=== PATIENT | female | born 1990 ===

== ENCOUNTER 2017-07-02 10:18 | Emergency (ER) | payer OTHER ==
[2017-07-02 10:28] VITALS: BMI 20.2
[2017-07-02 10:34] VITALS: RESP 18; O2SAT 100
[2017-07-02] MEDS ORDERED: Sodium Chloride 0.9% 1,000 ML IV ONE (10:43)
[2017-07-02] MEDS ORDERED: Sodium Chloride 0.9% 1,000 ML ONE (10:52)
[2017-07-02 11:13] LABS: BASO % 0.1 % (0.0-2.0); EOS # 0.1 K/uL (0.0-0.7); EOS % 1.1 % (0.0-4.0); HEMATOCRIT 40.9 % (34.0-47.0); LYMPH # 1.6 K/uL (1.0-4.3); LYMPH % 27.1 % (20.0-40.0); MEAN CELL VOLUME 88.3 fL (81.0-99.0); MEAN CORPUSCULAR HGB CONC 33.9 g/dL (33.0-37.0); MONO # 0.4 K/uL (0.0-0.8); MONO % 7.5 % (0.0-10.0); RED CELL DISTRIBUTION WIDTH 12.6 % (11.5-14.5); WHITE BLOOD COUNT 5.8 K/uL (4.8-10.8)
[2017-07-02 11:21] LABS: CHLORIDE 101 mmol/L (98-107); SODIUM 140 mmol/L (132-148)
[2017-07-02 11:22] LABS: RBC URINE 2 /hpf (0-3); URINE BILIRUBIN NEGATIVE (NEGATIVE); URINE BLOOD 1+ (NEGATIVE); URINE COLOR Yellow (YELLOW); URINE GLUCOSE (UA) NORMAL (Normal); URINE KETONE NEGATIVE (NEGATIVE); URINE LEUKOCYTE ESTERASE NEG Leu/uL (Negative); URINE PROTEIN NEGATIVE (NEGATIVE); URINE UROBILINOGEN NORMAL mg/dL (0.2-1.0); WBC URINE < 1 /hpf (0-5)
[2017-07-02 11:23] LABS: BILIRUBIN,TOTAL 0.7 mg/dL (0.2-1.3); GFR AFRICAN-AMERICAN > 60
[2017-07-02 11:24] LABS: ALB/GLOB RATIO 1.3 (1.0-2.1); ALKALINE PHOSPHATASE 47 U/L (38-126); ALT/SGPT 30 U/L (9-52); AST/SGOT 22 U/L (14-36); BLOOD UREA NITROGEN 12 mg/dL (7-17); CALCIUM 8.8 mg/dl (8.6-10.4); CARBON DIOXIDE 26 mmol/L (22-30); GLUCOSE,RANDOM 84 mg/dL (65-105)
--- NOTE | 2017-07-02 11:26 | CT ---
PROCEDURE: CT HEAD WITHOUT CONTRAST. HISTORY: Headache for 20 days, dizziness for 3 days COMPARISON: None available. TECHNIQUE: Axial computed tomography images were obtained through the head/brain without intravenous contrast. Radiation dose: Total exam DLP = 981.84 mGy-cm. This CT exam was performed using one or more of the following dose reduction techniques: Automated exposure control, adjustment of the mA and/or kV according to patient size, and/or use of iterative reconstruction technique. FINDINGS: HEMORRHAGE: No intracranial hemorrhage. BRAIN: No mass effect or edema. No atrophy or chronic microvascular ischemic changes. VENTRICLES: No hydrocephalus. CALVARIUM: Unremarkable. PARANASAL SINUSES: Unremarkable as visualized. No significant inflammatory changes. MASTOID AIR CELLS: Unremarkable as visualized. No inflammatory changes. OTHER FINDINGS: None. IMPRESSION: No acute intracranial pathology identified.
--- NOTE | 2017-07-02 11:45 | C.PDOC ---
History Of Present Illness Patient is a 26 year old female, with no significant past medical history, presents to Emergency Department for evaluation of intermittent headache for the last 20 days. Patient described headache as pressure, tight, and as "squeezing". Notes taking Ibuprofen for headache with transient relief. Also states that she developed dizziness associated with nausea and 1 episode of vomiting 4 days ago. Dizziness was described as room-spinning sensation. (+) photophobia (+)phonophobia. Otherwise, denies any abdominal pain, diarrhea, dysuria, hematuria, fever, chills, sensory changes, or any other associated symptoms at this time. Time Seen by Provider: 07/02/17 10:33 Chief Complaint (Nursing): Headache History Per: Patient History/Exam Limitations: no limitations Onset/Duration Of Symptoms: Days (20) Current Symptoms Are (Timing): Still Present Quality: Tightness, Pressure, Squeezing Preceeding Symptoms: Visual Disturbances. denies: Known Migraine Symptoms Associated Symptoms: Photophobia, Nausea, Vomiting. denies: Blurred Vision, Extremity Weakness Recent travel outside of the [place]: No Additional History Per: Patient Past Medical History Reviewed: Historical Data, Nursing Documentation, Vital Signs Vital Signs: Last Vital Signs Temp 98.0 F 07/02/17 12:40 Pulse 55 L 07/02/17 12:40 Resp 18 07/02/17 12:40 BP 92/58 L 07/02/17 12:40 Pulse Ox 100 07/02/17 12:40 - Medical History PMH: No Chronic Diseases Surgical History: Appendectomy, Cholecystectomy Family History: States: No Known Family Hx - Social History Hx Alcohol Use: No Hx Substance Use: No - Immunization History Hx Tetanus Toxoid Vaccination: No Hx Influenza Vaccination: No Hx Pneumococcal Vaccination: No Review Of Systems Except As Marked, All Systems Reviewed And Found Negative. Constitutional: Negative for: Fever, Chills Gastrointestinal: Positive for: Nausea, Vomiting. Negative for: Abdominal Pain , Diarrhea, Constipation, Hematemesis Genitourinary: Negative for: Dysuria, Frequency, Hematuria Musculoskeletal: Negative for: Neck Pain, Back Pain Neurological: Positive for: Headache, Dizziness. Negative for: Weakness, Numbness Physical Exam - Physical Exam Appears: Non-toxic, No Acute Distress Skin: Warm, Dry, No Rash Head: Atraumatic, Normacephalic Eye(s): bilateral: Normal Inspection, PERRL, EOMI, Other (no nystagmus) Ear(s): Bilateral: Normal Nose: Normal Oral Mucosa: Moist Throat: No Erythema, No Exudate, No Drooling Neck: Normal ROM, Supple Chest: Symmetrical Cardiovascular: Rhythm Regular, No Murmur Respiratory: Normal Breath Sounds, No Rales, No Rhonchi, No Wheezing Gastrointestinal/Abdominal: Soft, No Tenderness Extremity: Bilateral: Atraumatic, Normal Color And Temperature, Normal ROM Neurological/Psych: Oriented x3, Normal Speech, Normal Cranial Nerves, No Cerebellar Signs, Normal Motor, Normal Sensation, Other (neuro intact) Gait: Steady ED Course And Treatment - Laboratory Results Result Diagrams: 07/02/17 11:09 07/02/17 11:09 Lab Interpretation: No Acute Changes O2 Sat by Pulse Oximetry: 100 (RA) Pulse Ox Interpretation: Normal Medical Decision Making Medical Decision Making: Impression: 26 y/o female presents with headache, dizziness, nausea, vomiting, photophobia, and phonophobia. Plan: * EKG * Blood work, UA * Head CT * IV fluids, Reglan * Reassess and disposition Progress note: Labs reviewed and unremarkable. CT head IMPRESSION: No acute intracranial pathology identified. On re-evaluation, patient is resting comfortably, reports improvement of headache and dizziness. No neurologic deficit, rash, fever, or nuchal rigidity. Patient was instructed to follow up with physician/clinic in 1-2 days. Disposition Counseled Patient/Family Regarding: Diagnosis, Need For Followup, Rx Given - Disposition Referrals: [facility] [Outside] [facility] [Outside] Disposition: HOME/ ROUTINE Disposition Time: 12:40 Condition: STABLE Additional Instructions: Raul un seguimiento con la clnica o con abrams mdico para obtener ms evaluacin dentro de candido semana Sunday Tylenol o Advil para cualquier dolor [place] Reglan para cualquier nause [place] Meclizine para cualquier mareo Regrese al servicio de urgencias en cualquier momento si los sntomas persisten o empeoran. Usted puede llamar al servicio de conserjera para cualquier ayuda [phone]. Prescriptions: Meclizine [Meclizine*] 25 mg PO Q8 PRN #30 tab PRN Reason: Dizziness Metoclopramide [Reglan] 1 tab PO TID PRN #25 tab PRN Reason: Nausea/Vomiting Instructions: Vertigo (ED) Forms: [facility] (Tajik), Work Excuse Print Language: CZECH - POA Present On Arrival: None - Clinical Impression Clinical Impression: Headache, Vertigo - PA / NETWORK ENGINEERING ADVISOR / Resident Statement MD/DO has reviewed & agrees with the documentation as recorded. - Scribe Statement The provider has reviewed the documentation as recorded by the Taniaibjonathan Luong All medical record entries made by the Chata were at my direction and personally dictated by me. I have reviewed the chart and agree that the record accurately reflects my personal performance of the history, physical exam, medical decision making, and the department course for this patient. I have also personally directed, reviewed, and agree with the discharge instructions and disposition.
[2017-07-02 12:41] VITALS: BP 92/58; PULSE 55; TEMP 98
== END 2017-07-02 12:47 | disposition home or self-care (01) ==
LOC: C.ER 10:18
DX: R51 Headache (principal); R42 Dizziness and giddiness
CPT/HCPCS: 70450; 80053; 81001; 84703; 85025; 96361; 96374; 99285; J2765; J7040

== ENCOUNTER 2018-01-11 14:49 | Emergency (ER) | payer OTHER ==
[2018-01-11 14:49] VITALS: BMI 20.2
[2018-01-11 15:07] VITALS: RESP 16
[2018-01-11] MEDS ORDERED: Sodium Chloride 0.9% 1,000 ML IV ONE (15:45)
--- NOTE | 2018-01-11 15:52 | C.PDOC ---
History Of Present Illness 27-year-old female, approximately 6 weeks , presents to the ED complaining of suprapubic and epigastric pain for 1 day. She is currently not following up with an OB. Reports feeling nauseous as well but no vomiting. Patient also complains of dysuria and malodorous vaginal discharge. Otherwise no vaginal bleeding, chest pain, shortness of breath, fever, diarrhea, constipation. Last was full term. Time Seen by Provider: 01/11/18 15:32 Chief Complaint (Nursing): Abdominal Pain History Per: Patient History/Exam Limitations: no limitations Onset/Duration Of Symptoms: Days (x1) Current Symptoms Are (Timing): Still Present Location Of Pain/Discomfort: Epigastric, Suprapubic Associated Symptoms: Urinary Symptoms Abnormal Vaginal Bleeding: No : 2 Para: 1 Past Medical History Reviewed: Historical Data, Nursing Documentation, Vital Signs Vital Signs: Last Vital Signs Temp 98.7 F 01/11/18 15:06 Pulse 71 01/11/18 15:06 Resp 16 01/11/18 15:06 BP 92/59 L 01/11/18 15:06 Pulse Ox 97 01/11/18 18:53 - Medical History PMH: No Chronic Diseases Surgical History: Appendectomy, Cholecystectomy Family History: States: No Known Family Hx - Social History Hx Alcohol Use: No Hx Substance Use: No - Immunization History Hx Tetanus Toxoid Vaccination: No Hx Influenza Vaccination: No Hx Pneumococcal Vaccination: No Review Of Systems Except As Marked, All Systems Reviewed And Found Negative. Gastrointestinal: Positive for: Nausea, Abdominal Pain Genitourinary: Positive for: Dysuria, Vaginal Discharge Physical Exam - Physical Exam Appears: In Acute Distress (mild to moderate) Skin: Normal Color, Warm, Dry Head: Atraumatic, Normacephalic Eye(s): bilateral: Normal Inspection, PERRL, EOMI Nose: Normal Oral Mucosa: Moist Neck: Normal ROM, Supple Chest: Symmetrical Cardiovascular: Rhythm Regular Respiratory: Normal Breath Sounds, No Accessory Muscle Use Gastrointestinal/Abdominal: Soft, Tenderness (Suprapubic and epigastric tenderness), Other (Abdomen gravid) Extremity: Normal ROM, No Pedal Edema, No Deformity Neurological/Psych: Oriented x3, Normal Speech ED Course And Treatment - Laboratory Results Result Diagrams: 01/11/18 16:09 01/11/18 16:09 O2 Sat by Pulse Oximetry: 97 (RA) Pulse Ox Interpretation: Normal Medical Decision Making Medical Decision Making: Time: 15:45 Initial Plan: * Quantitative beta-HCG * CMP * Lipase * CBC * Chlamydia/GC * Urinalysis * IV fluids * Pepcid 20 mg IVP * Zofran 4 mg IVP * Transvaginal US Labs reviewed: (+) nitrates and RBC in urine On reevaluation, patient feels better. Informed patient of diagnosis of UTI, will discharge home with antibiotics, Pecpid, and Zofran. Discussed w/ patient results of ultrasound. Patient has a 7 week 2 day IUP. Advised patient to follow up with OB in 2 days without fail. Diagnosis: UTI Disposition Counseled Patient/Family Regarding: Studies Performed, Diagnosis, Need For Followup, Rx Given - Disposition Disposition: HOME/ ROUTINE Disposition Time: 18:50 Condition: STABLE Additional Instructions: follow up with supervisor agency appointments in 2 days call to make an appointment take medications as prescribed return to ER if symptoms worsens or progress Prescriptions: Famotidine [Pepcid] 20 mg PO BID #20 tab Nitrofurantoin Macrocrystals [Macrobid] 100 mg PO BID #14 cap Ondansetron ODT [Zofran ODT] 4 mg PO TID PRN #12 odt PRN Reason: Nausea/Vomiting Instructions: How to Adapt to Physical Changes During , Morning Sickness (DC), Acute Cystitis (DC) Forms: [facility] (Polish), General Discharge Instructions - Clinical Impression Clinical Impression: Nausea, Vomiting, UTI (urinary tract infection), - Scribe Statement The provider has reviewed the documentation as recorded by the Scribe (Marge Penn) Provider Attestation: All medical record entries made by the Scribe were at my direction and personally dictated by me. I have reviewed the chart and agree that the record accurately reflects my personal performance of the history, physical exam, medical decision making, and the department course for this patient. I have also personally directed, reviewed, and agree with the discharge instructions and disposition.
[2018-01-11 16:13] LABS: BASO % 0.2 % (0.0-2.0); EOS % 0.5 % (0.0-4.0); HEMOGLOBIN 13.9 g/dL (11.0-16.0); LYMPH # 1.7 K/uL (1.0-4.3); LYMPH % 16.8 % (20.0-40.0); MEAN CELL VOLUME 87.8 fL (81.0-99.0); MEAN CORPUSCULAR HEMOGLOBIN 30.7 pg (27.0-31.0); MEAN PLATELET VOLUME 8.5 fL (7.2-11.7); MONO # 0.6 K/uL (0.0-0.8); MONO % 5.7 % (0.0-10.0); NEUT # 7.6 K/uL (1.8-7.0); NEUT % 76.8 % (50.0-75.0); RBC 4.52 Mil/uL (3.80-5.20); RED CELL DISTRIBUTION WIDTH 12.9 % (11.5-14.5)
[2018-01-11 16:14] LABS: WHITE BLOOD COUNT 9.9 K/uL (4.8-10.8)
[2018-01-11 16:16] LABS: SQUAMOUS EPITHIAL 2 /hpf (0-5); URINE BACTERIA RARE (<OCC); URINE BILIRUBIN NEGATIVE (NEGATIVE); URINE BLOOD 2+ (NEGATIVE); URINE CLARITY Hazy (Clear); URINE COLOR Yellow (YELLOW); URINE GLUCOSE (UA) NORMAL (Normal); URINE LEUKOCYTE ESTERASE NEG Leu/uL (Negative); URINE NITRATE POSITIVE (NEGATIVE); URINE PROTEIN NEGATIVE (NEGATIVE)
[2018-01-11] MEDS ORDERED: Sodium Chloride 0.9% 1,000 ML ONE (16:19)
[2018-01-11 16:38] LABS: ALB/GLOB RATIO 1.1 (1.0-2.1); ALBUMIN 4.1 g/dL (3.5-5.0); ALT/SGPT 22 U/L (9-52); AST/SGOT 22 U/L (14-36); BLOOD UREA NITROGEN 8 mg/dL (7-17); CALCIUM 9.2 mg/dl (8.6-10.4); GFR AFRICAN-AMERICAN > 60; GFR NON-AFRICAN AMERICAN > 60
[2018-01-11 16:57] LABS: LIPASE 45 U/L (23-300)
--- NOTE | 2018-01-11 18:29 | US ---
PROCEDURE: First trimester ultrasound HISTORY: abd. discomfort, COMPARISON: None available. TECHNIQUE: Standard protocol for this study/examination. FINDINGS: LMP: 11/24/2017 Prior examinations from the current : None TECHNIQUE: Real-time 2D imaging, duplex and color Doppler. FINDINGS: Cardiac activity: Present Rate: 147 BPM Measurements: [place] rump length: 1.07 cm Gestational age based on CRL 7 weeks 1 day Gestational age 7 weeks 2 days based on gestational sac measurement 2.59 cm Gestational age derived from LMP: 6 weeks 6 days HELEN based on LMP: 08/31/2018 HELEN based on biometry: 08/28/2018 Gestational concordance documented Yolk sac identified Uterus: Unremarkable. No Cervical abnormalities: Negative examination for cervical dilatation or effacement. Closed cervix measuring 4.43 cm Subchorionic hemorrhage: Small, measuring 0.5 x 0.8 x 1.1 cm UTERUS: 5.5 x 7.6 x 10.4 cm. ADNEXA: Right: 3 x 3.5 cm. Simple cyst 3 x 3.1 cm Normal Doppler arterial waveform documented. Left: 2.3 x 2.7 cm. Normal Doppler arterial waveform documented Fluid in the cul-de-sac: None IMPRESSION: Seven weeks 2 days live intrauterine gestation. Gestational concordance documented. Small subchorionic hemorrhage.
[2018-01-11 19:27] VITALS: BP 135/86; PULSE 78; TEMP 98; O2SAT 98
== END 2018-01-11 19:00 | disposition home or self-care (01) ==
LOC: C.ER 14:49
DX: O23.41 Unspecified infection of urinary tract in pregnancy, first trimester (principal); O21.9 Vomiting of pregnancy, unspecified; Z3A.01 Less than 8 weeks gestation of pregnancy
CPT/HCPCS: 76801; 80053; 81001; 83690; 84702; 85025; 87491; 87591; 96361; 96374; 96375; 99285; J2405; J7040

== ENCOUNTER 2018-01-18 10:11 | Emergency (ER) | payer OTHER ==
[2018-01-18 10:12] VITALS: BMI 20.2
[2018-01-18 10:18] VITALS: RESP 18; O2SAT 100
[2018-01-18] MEDS ORDERED: Magnesium Hydroxide Susp 30 ml UD PO STA (11:50)
--- NOTE | 2018-01-18 11:50 | C.PDOC ---
History Of Present Illness 27-year-old female, presents to the emergency department with complaints of constipation for the last eight days. States she has the urge, but is unable to go to the bathroom. Patient is eight weeks . Has a Hx of colectomy, and appendectomy. Denies nausea/vomiting, vaginal bleeding/discharge, pelvic pain, fevers or chills. Time Seen by Provider: 01/18/18 10:26 Chief Complaint (Nursing): Abdominal Pain History Per: Patient History/Exam Limitations: no limitations Onset/Duration Of Symptoms: Days Current Symptoms Are (Timing): Still Present Severity: Moderate Past Medical History Reviewed: Historical Data, Nursing Documentation, Vital Signs Vital Signs: Last Vital Signs Temp 98.0 F 01/18/18 14:03 Pulse 74 01/18/18 14:03 Resp 18 01/18/18 14:03 BP 92/57 L 01/18/18 14:03 Pulse Ox 100 01/18/18 14:31 Surgical History: Appendectomy, Cholecystectomy Family History: States: No Known Family Hx - Social History Hx Alcohol Use: No Hx Substance Use: No - Immunization History Hx Tetanus Toxoid Vaccination: No Hx Influenza Vaccination: No Hx Pneumococcal Vaccination: No Review Of Systems Constitutional: Negative for: Fever, Chills Respiratory: Negative for: Cough, Shortness of Breath Gastrointestinal: Positive for: Abdominal Pain, Constipation. Negative for: Nausea, Vomiting Genitourinary: Negative for: Dysuria, Vaginal Discharge, Vaginal Bleeding Neurological: Negative for: Weakness, Headache, Dizziness Physical Exam - Physical Exam Appears: Non-toxic, No Acute Distress Skin: Normal Color, Warm, Dry, No Rash Head: Atraumatic, Normacephalic Eye(s): bilateral: Normal Inspection, EOMI Nose: Normal Oral Mucosa: Moist Lips: Normal Appearing Neck: Normal ROM Chest: Symmetrical Cardiovascular: Rhythm Regular Respiratory: No Decreased Breath Sounds, No Accessory Muscle Use Gastrointestinal/Abdominal: Soft, Tenderness (Diffuse), No Guarding, No Rebound , Other (Healed incisions, right upper and lower. ) Extremity: Normal ROM, No Deformity, No Swelling Neurological/Psych: Oriented x3, Normal Speech ED Course And Treatment O2 Sat by Pulse Oximetry: 100 (RA) Pulse Ox Interpretation: Normal Progress Note: Patient given enema, and had small bowel movement. Case discussed with Dr Bowles, OB oncall who notes glycerin and fleet enemas are ok to use and suggests to give sennokot for discharge. On re-evaluation, pt notes she feels better. Pt denies pain . Tolerating PO. No dysuria, vaginal bleeding, abdominal or pelvic pain. Discussed with pt the evaluation from 01/11 was evaluated and wont be repeated today since she asymptomatic. Discsused the limitations of evaluation and instructed to return to ER if symtpoms persist or worsen. Pt requests to be discharged noting she beleives all the discomfort is from the constipation which has resolved. Philanthropy Officer used to ensure understanding. Case discussed with odalis Xavier plan and discharge. Disposition - Disposition Disposition: HOME/ ROUTINE Disposition Time: 14:04 Condition: STABLE Additional Instructions: Vaya a abrams mdico o la clnica en 2-5 marshall sin falta, para mas evaluacin. [place] los medicamentos florecita indicado. Volver a la kendra de emergencia en cualquier momento si los sntomas persisten o empeoran. Prescriptions: Sennosides/Docusate Sodium [Senokot-S Tablet] 2 each PO HS #10 tablet Instructions: Constipation, Adult (DC) Forms: [email or web address] (Turkmen) Print Language: INDONESIAN - Clinical Impression Clinical Impression: , Constipation - Scribe Statement The provider has reviewed the documentation as recorded by the Scribe (Becki Story) All medical record entries made by the Scribe were at my direction and personally dictated by me. I have reviewed the chart and agree that the record accurately reflects my personal performance of the history, physical exam, medical decision making, and the department course for this patient. I have also personally directed, reviewed, and agree with the discharge instructions and disposition.
[2018-01-18] MEDS ORDERED: Magnesium Hydroxide Susp 30 ml UD ONE (12:01)
[2018-01-18 14:04] VITALS: BP 92/57; PULSE 74; TEMP 98
== END 2018-01-18 14:40 | disposition home or self-care (01) ==
LOC: C.ER 10:11
DX: O26.891 Other specified pregnancy related conditions, first trimester (principal); Z3A.08 8 weeks gestation of pregnancy; K59.00 Constipation, unspecified